=== PATIENT | female | born 1990 | race Caucasian/White ===

== ENCOUNTER 2021-09-24 18:06 | Emergency (ER) | payer OTHER, SELFPAY ==
--- NOTE | ~2021-09-24 | XR_ITS ---
XR finger 5th LT min 2V 09/24/2021 18:21 Indication: Left fifth finger pain after fall Procedure: 4 views left fifth finger Comparison: No prior studies for comparison. Findings: There is a nondisplaced extra-articular fracture of the left fifth distal phalanx. Mild sof t tissue swelling. No other fracture. No foreign bodies. Impression: 1: Nondisplaced extra-articular fracture left fifth distal phalanx. Reviewed, dictated and finalized at location A. Impression: 1: Nondisplaced extra-articular fracture left fifth distal phalanx.
--- NOTE | 2021-09-24 18:09 | ED.UPPEXIN ---
HPI - Extremity Injury (Upper) General Stated Complaint: left pinky injury Time Seen by Provider: 09/24/21 18:09 Source: patient Mode of arrival: ambulatory Limitations: no limitations History of Present Illness HPI narrative: Ms. Ta is a 31-year-old female patient presenting to the clinic today with complaints of left pinky finger pain after a fall. She reports that this happened on Saturday. She reports that she was not eating and worked out really hard and thinks she may have had a syncopal episode and fell. Related Data Home Medications Medication Instructions Recorded Confirmed multivitamin with minerals-folic 1 tablet PO DAILY 09/24/21 09/24/21 acid 200 mcg chewable tablet Allergies Allergy/AdvReac Type Severity Reaction Status Date / Time adhesive tape Allergy Mild Rash Verified 09/24/21 18:50 COBAN Allergy Mild Rash Uncoded 09/24/21 18:48 Review of Systems Review of Systems: CONSTITUTIONAL: Denies fever, chills, or sweats. EYES: Denies visual changes, redness, or discharge. ENT: Denies rhinorrhea, congestion, sore throat, or otalgia. CARDIOVASCULAR: Denies chest pain, palpitations, or edema. RESPIRATORY: Denies cough or dyspnea. GASTROINTESTINAL: Denies abdominal pain, nausea, vomiting, or diarrhea. GENITOURINARY: Denies dysuria or hematuria. SKIN: Denies rash or itching. MUSCULOSKELETAL: Denies back pain, joint pain, or myalgia. NEUROLOGIC: Denies headache, numbness, or weakness. PSYCHIATRIC: Denies anxiety or depression. PMFSH Comments At the time of my signature, I reviewed and agree with the nursing past medical, surgical, social, and family history. There is no relevant family history pertinent to the patient complaint. Exam Narrative: General: Well-developed, obese, in no apparent distress Head: Normocephalic, atraumatic. Cardio: Regular rate and rhythm, s1 and s2 normal, no murmur appreciated. Resp: Clear to auscultation bilaterally, no rhonchi, rales, wheezing or rubs. Musculoskeletal: No deformity, bruising and swelling noted over the left distal fifth finger, pain with flexion and extension of the DIP joint of the left fifth finger, tender to palpation the distal phalanx and DIP joint of the left fifth finger, limited range of motion of the DIP joint due to pain and swelling, muscle strength strong and equal, peripheral pulse strong, no cyanosis, normal gait and station Course Course Emergency Course: Portions of this record may have been created with voice recognition software. Level of Care: Express Care Visit Vital Signs Vital signs: Vital signs reviewed MDM - Extremity Injury (Upper) MDM Narrative Medical decision making narrative: At the time of assessment patient is resting comfortably on the exam table. X-ray was completed and it was found that patient has a nondisplaced distal phalanx fracture of the left fifth finger. Splint was applied and supportive measures were discussed with the patient. Patient voiced understanding of discharge instructions and agrees to the treatment plan. Differential Diagnosis Differential diagnosis: Likely finger sprain, dislocation of finger and other (Finger fracture) Imaging Data Attestation: I personally reviewed and interpreted this imaging study as follows: My impression: Left fifth finger distal phalanx fracture Radiologist's impression: [facility] [place] [id number] XRay Report Signed Patient: Vaishnavi Henry : 1990 MR#: [id number] Age/Sex: 31 / F Acct:[id number] Loc: [facility]? ? ADM Date: 09/24/21Attending Dr: Ordering Physician: Alexx Neal APRN Date of Service: 09/24/21 Procedure(s): XR finger 5th LT min 2V Accession Number(s): [id number] cc: Alexx Neal APRN~ XR finger 5th LT min 2V 09/24/2021 18:21 Indication: Left fifth finger pain after fall Procedure: 4 views left fifth finger Comparison: No alvarado
[2021-09-24 18:12] VITALS: BP 142/93; PULSE 83; RESP 18; TEMP 37.6; O2SAT 98
== END 2021-09-24 18:35 | disposition home or self-care (01) ==
PROVIDERS: Emergency Provider Nurse Practitioner Family
DX: S62.667A Nondisplaced fracture of distal phalanx of left little finger, initial encounter for closed fracture (principal); W19.XXXA Unspecified fall, initial encounter
CPT/HCPCS: 29130; 73140; 99204; G0463

== ENCOUNTER → 2022-02-21 09:23 | Outpatient (CLI) | payer OTHER, SELFPAY ==
--- NOTE | ~2022-02-21 | US_ITS ---
EXAMINATION: US OB /maternal detail DATE: 02/21/2022 10:02 INDICATION: anatomic survey. TECHNIQUE: Real-time ultrasound of the pelvis was performed. COMPARISON: None. FINDINGS: There is a single living fetus in transverse lie. The placenta is posterior, 6.0 cm from the cervix. heart rate is 143 beats per minute (bpm). The amniotic fluid volume is subjectively normal. Th e cervical length is normal on transabdominal images. The following biometric data were obtained: Biparietal diameter (BPD): 4.4 cm; head circumference (HC): 15.9 cm; abdominal circumference (AC): 13 .0 cm; femur length (FL): 3.1 cm. These measurements are concordant. Estimated weight is 270 g +/- 40 g, which correlates with the 18th percentile when 07/14/22 is u sed as estimated date of delivery. As single measurements, these parameters are each equal to the following estimated gestational ages: BPD: 19 weeks 2 days. HC: 18 weeks 5 days. AC: 18 weeks 4 days. FL: 19 weeks 4 days. estimated gestational age based solely on measurements from this exam is 19 weeks 0 days +/- 1 weeks 2 days. The cerebral ventricles, cerebellum, cisterna magna, nuchal fold, and visualized portions of the spin e are normal. The four-chamber heart view is normal. The ventricular outflow tracts are not well visu alized. The diaphragm, stomach, kidneys, and bladder are normal. There are two umbilical arteries to yield a 3-vessel cord. The cord insertion is normal. IMPRESSION: 1. Single living fetus in transverse lie. 2. Estimated weight is 270 g +/- 40 g, which correlates with the 18th percentile when 07/14/22 is used as estimated date of delivery. 3. Normal anatomic survey. Heart ventricular outflow tracts not well visualized. Reviewed, dictated and finalized at location A. IMPRESSION: 1. Single living fetus in transverse lie. 2. Estimated weight is 270 g +/- 40 g, which correlates with the 18th pe rcentile when 07/14/22 is used as estimated date of delivery. 3. Normal anatomic survey. Heart ventricular outflow tracts not well visu alized.
== END ==
PROVIDERS: PCP Nurse Practitioner Family; Visit Provider Nurse Practitioner Family
DX: Z34.82 Encounter for supervision of other normal pregnancy, second trimester (principal); Z3A.19 19 weeks gestation of pregnancy
CPT/HCPCS: 76805

== ENCOUNTER → 2022-03-19 09:55 | Outpatient (CLI) | payer OTHER, SELFPAY ==
--- NOTE | ~2022-03-19 | US_ITS ---
EXAMINATION: US OB follow up DATE: 03/19/2022 10:32 INDICATION: Evaluate outflow tracts. TECHNIQUE: Real-time transabdominal obstetric ultrasound. FINDINGS: Comparison to ultrasound dated 02/21/2022 There is a single living fetus in transverse presentation. The placenta is posterior without placent a previa. Placental margin measures approximately 7 cm to the cervix. Cervical length is approximatel y 3.6 cm. Amniotic fluid volume is subjectively normal. cardiac activity and movement is noted with a heart rate of 153 beats per minute. E valuation of the ventricular outflow tracts are normal. The following biometric data were obtained: BPD: 50mm corresponds to gestational age 21 weeks 0 days. Head circumference: 190mm corresponds to gestational age 21 weeks 2 days. Abdominal circumference: 178mm corresponds to gestational age 22 weeks 5 days. Femur length: 41mm corresponds to gestational age 23 weeks 2 days. Estimated weight: 526grams +/- 79grams, 17.8% using Hadlock method.] IMPRESSION: 1. Single living intrauterine in transverse presentation with an estimated gestational age of 23 weeks 2 days by inititial date. Appropriate interval growth. 2. Normal ventricular outflow tracts.. Reviewed, dictated and finalized at location B. [employer] TECHNICIAN IMPRESSION: 1. Single living intrauterine in transverse presentation with an est imated gestational age of 23 weeks 2 days by inititial date. Appropriate inter garima growth. 2. Normal ventricular outflow tracts..
== END ==
PROVIDERS: PCP Nurse Practitioner Family; Visit Provider Nurse Practitioner Family
DX: O28.3 Abnormal ultrasonic finding on antenatal screening of mother (principal)
CPT/HCPCS: 76816

== ENCOUNTER 2023-03-05 15:01 | Emergency (ER) | payer OTHER, SELFPAY ==
[2023-03-05 15:18] VITALS: BP 132/90; PULSE 88; RESP 16; TEMP 36.6; O2SAT 100
[2023-03-05 15:23] VITALS: BP 132/90; PULSE 88; RESP 16; TEMP 36.6; O2SAT 100
--- NOTE | 2023-03-05 15:24 | ED.SKABFB ---
HPI - Skin/Abscess/Foreign Bdy General Chief complaint: Skin/Abscess/Foreign Body Stated complaint: Chest pain;Hives Time Seen by Provider: 03/05/23 15:20 Source: patient Mode of arrival: ambulatory Limitations: no limitations History of Present Illness HPI narrative: Marimar is a 32-year-old female patient presenting to clinic today with complaints cough, hives, and some chest discomfort. She reports she does have a history of asthma and feels as though her chest is tight. Denies any fever or chills. Denies any known exposure to anyone with COVID, flu, or strep. Denies any new environmental changes. Related Data Home Medications Medication Instructions Recorded Confirmed multivitamin with minerals-folic 1 tablet PO DAILY 09/24/21 03/05/23 acid 200 mcg chewable tablet albuterol sulfate 2.5 mg/3 mL 2.5 mg inhalation DAILY 03/05/23 03/05/23 (0.083 %) solution for nebulization budesonide-formoterol HFA 160 1 inh inhalation DAILY 03/05/23 03/05/23 mcg-4.5 mcg/actuation aerosol inhaler (Symbicort) montelukast 10 mg tablet 10 mg PO DAILY 03/05/23 03/05/23 Allergies Allergy/AdvReac Type Severity Reaction Status Date / Time adhesive tape Allergy Mild Rash Verified 03/05/23 15:05 COBAN Allergy Mild Rash Uncoded 03/05/23 15:05 Review of Systems Review of Systems: Pertinent positives per HPI. Patient denies any fever, chills, rash, headache, visual changes, dizziness, cough, runny nose, sore throat, shortness of breath, chest pain, palpitations, nausea, vomiting, diarrhea, constipation, abdominal pain, or any urinary issues. PMFSH Comments At the time of my signature, I reviewed and agree with the nursing past medical, surgical, social, and family history. There is no relevant family history pertinent to the patient complaint. Exam Narrative: General: Well-developed, well nourished, in no apparent distress Head: Normocephalic, atraumatic Eyes: Pupils equally round and reactive to light bilaterally, EOM intact, sclera and conjunctive clear, no discharge, lids normal Ears: TMs intact and clear, ear canals clear, no drainage, grossly hearing normal. Nose: Nares patent, clear nasal discharge, no inflammation, no sinus tenderness. Mouth: Oropharynx without lesions or masses, good dentition, MMM. Neck: Supple, trachea midline, no enlargement of anterior or posterior cervical nodes, no thyroid masses or goiter palpable. Cardio: Regular rate and rhythm, s1 and s2 normal, no murmur appreciated. Resp: Inspiratory wheeze otherwise clear, no rhonchi, rales, or rubs Integumentary: Ocean, warm, and dry, red dry skin where patient has been scratching but no obvious sign of hives Course Course Emergency Course: Portions of this record may have been created with voice recognition software. Level of Care: Express Care Visit Vital Signs Vital signs: Vital Signs Temperature 36.6 C 03/05/23 15:18 Pulse Rate 88 03/05/23 15:18 Respiratory Rate 16 03/05/23 15:18 Blood Pressure 132/90 03/05/23 15:18 Pulse Oximetry 100 03/05/23 15:18 Temperature 36.6 C 03/05/23 15:23 Pulse Rate 88 03/05/23 15:23 Respiratory Rate 16 03/05/23 15:23 Blood Pressure 132/90 03/05/23 15:23 Pulse Oximetry 100 03/05/23 15:23 Vital signs reviewed MDM - Skin/Abscess/Foreign Bdy MDM Narrative Medical decision making narrative: At the time of visit patient is resting comfortably on the exam table. Patient has inspiratory wheezing with some chest tightness-history of asthma. I suspect the patient is having asthma exacerbation with a pruritic skin. Will send in prescription for prednisone and Pepcid. Supportive measures were discussed with the patient she voiced understanding of the discharge instructions and agrees to treatment plan. Differential Diagnosis Differential diagnosis: Likely abscess of skin or subcutaneous tissue, viral exanthem, dermatophytosis, urticaria, cellulitis, eczema, insect
== END 2023-03-05 15:31 | disposition home or self-care (01) ==
PROVIDERS: Emergency Provider Nurse Practitioner Family; PCP Nurse Practitioner Adult Health
DX: R21 Rash and other nonspecific skin eruption (principal); J45.901 Unspecified asthma with (acute) exacerbation
CPT/HCPCS: 99213; G0463

== ENCOUNTER 2023-03-20 16:07 | Emergency (ER) | payer OTHER, SELFPAY ==
--- NOTE | 2023-03-20 16:15 | ED.URI ---
HPI - URI/Sore Throat General Chief Complaint: Upper Respiratory Infection Stated Complaint: Hives;Sore Throat Time Seen by Provider: 03/20/23 16:39 Source: patient and RN notes reviewed Mode of arrival: ambulatory Limitations: no limitations History of Present Illness HPI Narrative: 33-year-old female presents with concern for sore throat and ongoing hives. She reports she was seen here 2 weeks ago for hives and was prescribed steroids, Pepcid, told to take Benadryl [id number] and Zyrtec [id number]. She reports Benadryl makes her very tired, the steroids helped the itching but the appearance of hives with still there. She denies any nausea, vomiting, diarrhea, swollen lips, swollen tongue, trouble breathing. She denies any known trigger for her hives. She reports when she was she had hives. Reports the symptoms get worse when she is stressed out. MD elicited complaint: sore throat Related Data Home Medications Medication Instructions Recorded Confirmed multivitamin with minerals-folic 1 tablet PO DAILY 09/24/21 03/20/23 acid 200 mcg chewable tablet albuterol sulfate 2.5 mg/3 mL 2.5 mg inhalation DAILY 03/05/23 03/20/23 (0.083 %) solution for nebulization budesonide-formoterol HFA 160 1 inh inhalation DAILY 03/05/23 03/20/23 mcg-4.5 mcg/actuation aerosol inhaler (Symbicort) Allergies Allergy/AdvReac Type Severity Reaction Status Date / Time adhesive tape Allergy Mild Rash Verified 03/20/23 16:27 COBAN Allergy Mild Rash Uncoded 03/20/23 16:27 Review of Systems Review of Systems: CONSTITUTIONAL: Denies malaise, chills, sweats, or fever. EYES: Denies visual changes, redness, or discharge. ENT: Denies rhinorrhea, congestion, sinus pain, otalgia. Reports sore throat. CARDIOVASCULAR: Denies chest pain, palpitations, or edema. RESPIRATORY: Denies cough. Denies dyspnea. GASTROINTESTINAL: Denies abdominal pain, nausea, vomiting, diarrhea SKIN: Reports ongoing hives for 2 weeks. MUSCULOSKELETAL: Denies myalgia. NEUROLOGIC: Denies headache. All systems reviewed & are unremarkable except as noted in HPI and below PMFSH Comments At time of signature, agree with nursing past medical, surgical, social and family history. There is no relevant family history pertinent to the presenting complaint Exam Narrative: GENERAL: Well-appearing, well-nourished, and in no acute distress. HEAD: Normocephalic EYES: PERRLA, conjunctivae clear ENT: Nares clear. Mucous membranes moist. TM pearly barakat with sharp light reflex bilaterally; no tragal tenderness. Oropharynx not erythematous without lesions. Tonsils not enlarged and without exudate, no drooling, no hoarseness, no trismus, uvula midline. NECK: Supple. No lymphadenopathy CHEST: Clear to auscultation, breath sounds equal. No wheezing, rhonchi, rales, or stridor. No respiratory distress, speaks in full sentences. HEART: Regular rate and rhythm. No murmur heard. SKIN: Warm, dry. Generalized urticarial rash noted NEURO: Alert and oriented x3. PSYCH: Normal mood and affect Course Course Emergency Course: Patient is aware of diagnosis, understands and agrees to treatment plan. Anticipatory guidance given. Patient agrees to follow-up as directed and is aware of reasons to seek care at the emergency department. Portions of this record may have been created with voice recognition software Level of Care: Express Care Visit Vital Signs Vital signs: Reviewed. MDM - URI/Sore Throat MDM Narrative Medical decision making narrative: Differential diagnosis considered: Holloway virus, strep pharyngitis, allergic rhinitis, upper respiratory tract infection, sinusitis, rhinosinusitis, nasopharyngitis. viral pharyngitis, otitis media, otitis externa, pneumonia, bronchitis, viral cough syndrome, viral syndrome, and influenza. Exam findings show no acute concerns or changes; patient is non-toxic appearing and is in no distress. Patient is appropriate for o
[2023-03-20 16:19] VITALS: BP 136/99; PULSE 78; RESP 18; TEMP 37.1; O2SAT 100
== END 2023-03-20 17:12 | disposition home or self-care (01) ==
PROVIDERS: Emergency Provider Nurse Practitioner
DX: L50.9 Urticaria, unspecified (principal); J45.909 Unspecified asthma, uncomplicated
CPT/HCPCS: 81003; 81025; 87081; 87880; 96372; 99213; G0463; J1100

== ENCOUNTER 2025-03-02 17:05 | Outpatient (CLI) | payer OTHER, SELFPAY ==
--- OUTSIDE RECORDS SUMMARY | 2025-03-02 17:10 | XMS_ITS | Clinical Summary ---
Author Organization [facility] Address [address] [place] [address] Care Team Providers Care Fretted Instrument Maker Hand Name Role Phone Wilver Harrison MD Unavailable + [phone] Sylvester Parham DPM Unavailable + [phone] No, Physician Primary Care Provider [phone] Allergies Active Allergy Reactions Criticality Noted Date Comments Cat Hair Standardized Allergenic Extract Hives Medium 10/04/2019 Dog Hair Standardized Allergenic Extract Hives Medium 06/24/2023 Latex Rash Medium 07/29/2018 Medications acetaminophen 500 mg capsuleIndications :Pain Take 2 capsules (1,000 mg total) by mouth every 6 (six) hours as needed for pain (TAKE FIRST) 60 tablet 08/03/19 19 Active Additional Information Patient not taking.Reported on 12/15/2024 acyclovir (ZOVIRAX) 400 mg tablet 04/08/20 23 Active cetirizine (ZyrTEC) 10 mg tablet Take 1 tablet (10 mg total) by mouth daily 08/25/19 22 Active albuterol 2.5 mg /3 mL (0.083 %) nebulizer solution 02/05/20 23 Active hydrOXYzine (ATARAX) 25 mg tablet Take 1 tablet (25 mg total) by mouth 3 (three) times a day as needed for anxiety 21 tablet 05/08/19 24 Active Additional Information Patient not taking.Reported on 06/24/2023 ondansetron ODT (ZOFRAN-ODT) 4 mg disintegrating tablet Take 1 tablet (4 mg total) by mouth every 8 (eight) hours as needed for nausea or vomiting 20 tablet 05/29/19 24 Active Additional Information Patient not taking.Reported on 06/24/2023 montelukast (SINGULAIR) 10 mg tabletIndications: Moderate persistent asthma with acute exacerbation Take 1 tablet (10 mg total) by mouth nightly 30 tablet 11 07/05/19 24 Active Additional Information Patient not taking.Reported on 11/19/2023 escitalopram (LEXAPRO) 5 mg tablet Take 1 tablet (5 mg total) by mouth daily 30 tablet 1 11/19/19 24 Active promethazine-DM (PROMETHAZINE-DM) 1.25-3 mg/mL syrupIndications:C OVID-19 virus infection Take 5 mL by mouth 4 (four) times a day as needed for cough (And runny nose) Collaborating physician Pepe Barillas MD 118 mL 1 12/20/19 24 Active naproxen (NAPROSYN) 500 mg tabletIndications: COVID-19 virus infection TAKE 1 TABLET BY MOUTH TWICE A DAY NEEDED FOR PAIN 60 tablet 1 12/23/19 24 Active promethazine (PHENERGAN) 1.25 mg/mL syrupIndications:N ausea Take 20 mL (25 mg total) by mouth 4 (four) times a day as needed for nausea Collaborating physician Pepe Barillas MD. note the pharmacist: May substitute with promethazine 25 mg tablets 1 p.o. q.i.d. p.r.n. nausea. Disp #20 240 mL 05/20/19 25 Active montelukast (SINGULAIR) 10 mg tablet TAKE 1 TABLET BY MOUTH EVERY DAY AT NIGHT 90 tablet 1 05/25/19 25 Active azithromycin (Zithromax Z-Cayden) 250 mg tabletIndications: Acute bronchitis, unspecified organism,Acute bronchospasm,Tonsi llitis Take 1 tablet (250 mg total) by mouth daily Take first 2 tablets together, then 1 every day until finished. Collaborating physician Pepe Barillas MD 6 tablet 06/14/19 25 Active Additional Information Patient not taking.Reported on 12/15/2024 promethazine-DM (PROMETHAZINE-DM) 1.25-3 mg/mL syrupIndications:A cute bronchitis, unspecified organism Take 5 mL by mouth 4 (four) times a day as needed for cough Collaborating physician Pepe Barillas MD 473 mL 06/22/19 Active HYDROcodone-acetam inophen (NORCO) 5-325 mg per tabletIndications: Pain Take 1 tablet by mouth every 6 (six) hours as needed for pain for up to 6 doses 6 tablet 07/19/19 Active Additional Information Patient not taking.Reported on 12/15/2024 valACYclovir (VALTREX) 500 mg tablet Take 1 tablet (500 mg total) by mouth daily 11/07/19 Active Blisovi 24 Fe 1 mg-20 mcg (24)/75 mg (4) per tablet Take 1 tablet by mouth daily 11/25/19 Active famotidine (PEPCID) 40 mg tabletIndications: Gastroesophageal reflux disease, unspecified whether esophagitis present Take 1 tablet (40 mg total) by mouth daily 30 tablet 12/16/19 026 Active albuterol HFA (PROVENTIL HFA,VENTOLIN HFA,PROAIR HFA) 90 mcg/actuation inhalerIndications :Moderate persistent asthma without complication Inhale 2 puffs every 4 (four) hours as needed for wheezing or shortness of breath Collaborating physician Pepe Barillas MD 1 each 12/16/19 25 Active albuterol-budesoni de 90-80 mcg/actuation HFA aerosol inhaler Inhale 2 puffs every 6 (six) hours as needed (cough, shortness of breath or wheezing) 10.7 g 11 12/16/19 Active Trelegy Ellipta 200-62.5-25 mcg inhalerIndications :Moderate persistent asthma without complication INHALE 1 PUFF DAILY RINSE AND SPIT AFTER USE 60 each 01/28/20 25 026 Active promethazine (PHENERGAN) 1.25 mg/mL syrup Take 20 mL (25 mg total) by mouth every 6 (six) hours as needed for nausea or vomiting 473 mL 02/12/20 25 Active Active Problems Problem Noted Date Diagnosed Date Acute bronchitis 06/14/2024 Acute bronchospasm 06/14/2024 Uvulitis 05/20/2024 Acute pharyngitis 05/20/2024 Nausea 05/20/2024 COVID-19 virus infection 12/20/2023 Moderate persistent asthma with acute exacerbati on 07/05/2023 Assessment & Plan (08/09/2023 1:29 PM CDT): Continue Trelegy Ellipta 200 daily, she has had good clinical benefit however symptoms persist Prescription sent to pharmacy to check for coverage Continue albuterol as needed only, discussed indications for use Avoid triggers Restart montelukast daily in the evening Mucinex OTC IgE level significantly elevated and multiple positives on RAST allergy panel Low threshold to initiate biologics Assessment & Plan (07/05/2023 11:03 AM PRINTED CIRCUIT BOARDS CONTACT PRINTER): We have had an extensive discussion about asthma and the need for maintenance inhalers Start Trelegy Ellipta 200 daily, samples to patient She was instructed to use this at the same time each day and rinse and spit after use Continue albuterol as needed only, discussed indications for use I provided her an AeroChamber for use with albuterol Avoid triggers Restart montelukast daily Mucinex OTC History of pneumothorax 07/05/2023 Assessment & Plan (07/05/2023 10:57 AM PRINTED CIRCUIT BOARDS CONTACT PRINTER): No residual on imaging Gastroesophageal reflux disease 07/05/2023 Assessment & Plan (10/23/2023 3:59 PM CDT): Continue famotidine 40 mg daily She has had good control with daily use Avoid trigger foods Elevate head of bed when sleeping No eating 2-3 hours before bed Assessment & Plan (08/09/2023 1:31 PM CDT): I have encouraged consistent use of famotidine 40 mg p.o. 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 Assessment & Plan (10/23/2023 3:58 PM CDT): Continue montelukast and OTC allergy pill daily IgE 1151 and multiple positives on RAST allergy panel Assessment & Plan (08/09/2023 1:30 PM CDT): Continue montelukast, OTC allergy pill Avoid triggers Assessment & Plan (07/05/2023 10:57 AM PRINTED CIRCUIT BOARDS CONTACT PRINTER): IgE level significantly elevated Start triple therapy maintenance inhaler as above She may qualify for biologics, we will reassess her status after she has been on maintenance inhaled therapy daily Environmental allergies 07/05/2023 Assessment & Plan (07/05/2023 10:55 AM PRINTED CIRCUIT BOARDS CONTACT PRINTER): RAST panel with multiple positives She has re-homed her dog Restart allergy pill daily Montelukast daily Will reassess in 1 month, she may need evaluation for SCIT Asthma 05/08/2023 Assessment & Plan (10/23/2023 4:01 PM CDT): She has had best clinical benefit from Trelegy Ellipta 200, I recommend she restart this as maintenance therapy She has tried and failed Symbicort and Spiriva with worsening respiratory symptoms Albuterol as needed only, discussed indications for use Avoid triggers I would have a low threshold to initiate biologic therapy in the future if she were to become uncontrolled with optimal maintenance dosing Assessment & Plan (05/10/2023 11:17 AM PRINTED CIRCUIT BOARDS CONTACT PRINTER): Not at goal, has been out of her Symbicort and Singulair for a few days though. Will refill for her, she is also wanting to see a Vp Customer Service, will send referral. Anxiety 05/08/2023 Assessment & Plan (11/19/2023 11:36 AM CDT): Not at goal, has been on Sertraline in the past with adverse side effects. Patient never started Paxil. Will trial Lexapro 5 mg daily, education provided. Assessment & Plan (05/10/2023 11:16 AM PRINTED CIRCUIT BOARDS CONTACT PRINTER): Not at goal, discussed different medications and she will start the Paxil originally prescribed by her BENCH LAY OUT TECHNICIAN. Hydroxyzine prn. Education provided and follow up in 4 weeks. with 39 completed weeks gestation 06/27 Tonsillitis 05/02/2021 Suspected COVID-19 virus infection 05/02/2021 Bilateral carpal tunnel syndrome 06/22/2020 Multiple rib fractures 07/30/2018 Pneumothorax on left 07/30/2018 Assessment & Plan (05/10/2023 11:15 AM PRINTED CIRCUIT BOARDS CONTACT PRINTER): Hx present. Closed coracoid process fracture 07/30/2018 Acute pain due to trauma 07/30/2018 Morbid obesity 03/05/2013 Encounters Date Type Department Care Team Description 02/11/2025 4:13 PM CDT - 02/11/2025 4:34 PM CDT Emergency [facility] Emergency Department [address] [place] [address] Nausea and vomiting, unspecified vomiting type (Primary Dx) Discharge Disposition: Discharge to home or self care 02/04/2025 Telephone [facility] Pulmonary at [address] [phone] Maia Walker LPN nebulizing supplies 01/29/2025 Telephone [facility] at [address] [phone] Misael Aragon MD 12/28/2024 10:58 AM CDT - 12/28/2024 11:32 AM CDT Emergency [facility] Emergency Department [address] [place] [address] Discharge Disposition: Left without being seen 12/16/2024 Telephone [facility] at [address] [phone] Maia Walker LPN Allergy referral concern 12/15/2024 1:30 PM CDT Office Visit [facility] at [address] [phone] Ryan Lau MD History of pneumothorax (Primary Dx); Moderate persistent asthma without complication; Gastroesophageal reflux disease, unspecified whether esophagitis present; Chronic urticaria from Last 3 Months Immunizations Immunization Administration Dates Next Due DTP 1992,1992,1992 DTaP 12/07/1997,07/02/1995 DTaP, Unspecified 12/07/1997,07/02/1995 HPV, Unspecified 01/14/2009,12/06/1996, 7 HPV9 01/14/2009,12/06/1996,08/19/1996 Hep B, Unspecified 1992,1992 HiB 06/21/1993, 3,1992,05/16 Influenza, Quadrivalent, Spl it, Intramuscular 04/18/2017,06/14/2016,07/13/2015,02/02 Influenza, Trivalent, Preser vative Free, Intramuscular 04/06/2013,02/11/2012 Influenza, Unspecified 05/08/2023(Deferr ed: Patient Refused),04/29/2022(Deferred: Patient Refused) MMR 12/07/1997,06/21/1993 OPV 12/07/1997, 6,1992,05/16 Tdap 07/29/2018,02/02/2014 Surgical History Surgery Date Site/Laterality Comments SECTION Medical History Medical History Date Comments Hypertension Hypertension Asthma Asthma Pneumothorax 2018 Moderate persistent asthma with acute exacerbati on 07/05/2023 History of pneumothorax 07/05/2023 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 Environmental allergies 07/05/2023 Family History Medical History Relation Name Comments Arthritis Mother Asthma Mother COPD Mother Heart failure Mother Relation Name Status Comments Mother Social History Tobacco Use Types Packs/Day Years Used Date Smoking Tobacco: Former Cigarettes 0.5 8 2 007 - 2014 Passive Smoke Exposure: Past Tobacco Cessation:Counseling Given: Not Answered Comments:Quit off and on, socially smoked in the past Alcohol Use Standard Drinks/Week Comments No 0 (1 standard drink = 0.6 oz pur e alcohol) Social Connection and Isolation Panel Answer Date Recorded In a typical week, how many times do you talk on the phone with family, friends, or neighbors? More than three times a week 07/09/2022 How often do you get togethe r with friends or relatives? More than three times a week 07/09/2022 How often do you attend [facility] or baptism services? Never 07/09/2022 Do you belong to any clubs o r organizations such as cheondoism groups, unions, fraternal or athletic groups, or school groups? No 07/09/2022 How often do you attend meet ings of the clubs or organizations you belong to? Never 07/09/2022 Are you , , di vorced, , never , or living with a partner? Patient declined 07/09/2022 Overall Financial Resource Strain (CARDIA) Answe r Date Recorded How hard is it for you to pa y for the very basics like food, housing, medical care, and heating? Not hard at all 07/09/2022 PHQ-2 Answer Date Recorded PHQ-2 Total Score (If total score is 3 or more points, staff should administer the PHQ-9) 2 11/19/2023 [facility] Occupat ional [facility] - Occupational Stress Questionnaire Answer Date Recorded Do you feel stress - tense, restless, nervous, or anxious, or unable to sleep at night because your mind is troubled all the time - these days? Not at all 07/09/2022 Exercise Vital Sign Answer Date Recorde d On average, how many days pe r week do you engage in moderate to strenuous exercise (like a brisk walk)? 3 days 07/09/2022 On average, how many minutes do you engage in exercise at this level? 20 min 07/09/2022 Hunger Vital Sign Answer Date Recorded Within the past 12 months, y ou worried that your food would run out before you got the money to buy more. Never true 07/10/19 Within the past 12 months, t he food you bought just didn't last and you didn't have money to get more. Never true 07/09/2022 PRAPARE - Transportation Answer Date Re corded In the past 12 months, has l ack of transportation kept you from medical appointments or from getting medications? No 06/27 In the past 12 months, has l ack of transportation kept you from meetings, work, or from getting things needed for daily living? No 07/09/2022 Housing Stability Vital Sign Answer Jose Guadalupe e Recorded In the last 12 months, was t here a time when you were not able to pay the mortgage or rent on time? No 07/09/2022 In the last 12 months, how many places have you lived? 2 07/09/2022 In the last 12 months, was t here a time when you did not have a steady place to sleep or slept in a custodial (including now)? No 07/09/2022 AUDIT-C Answer Date Recorded Frequency of Alcohol Consumption Not on file 12/15/2024 Q2: How many drinks containi ng alcohol do you have on a typical day when you are drinking? Patient does not drink Frequency of Binge Drinking Not on file 11/27 Personal Safety Answer Date Recorded Have you ever been in or are you currently in a harmful physical or emotional relationship or is someone making you feel afraid or unsafe? Denies 02/11/2025 Comments Unknown Sex and Gender Information Value Date Recorded Sex Assigned at Not on file Legal Sex Female 1:04 PM PRINTED CIRCUIT BOARDS CONTACT PRINTER Gender Identity Not on file Sexual Orientation Not on file Obstetrics History Para Term AB IAB SAB Ectopic Multiple Livin g Live Births 2 2 2 0 2 2 Date Outcome GA Total Labor Labor/2nd/3rd Weight Sex Type Anes PTL Kandy A1 A5 Name Clin 2010 Term 40w 0d 2.781 kg (6 lb 2.1 oz) M C-Sec tion Genera l N Livin g Complications:Failure to Pro julianna in First Stage Delivery Location:[facility] Comments:Failed epidur al 2022 Term 39w 0d 0h 03m 0h 03m 2.924 kg (6 lb 7.1 oz) F C-Sec tion Spinal N Livin g 9 9 FILE, GIRLL Antonio Griggs MD Delivery Location:[facility] ([facility] L AND D PROCEDURE) Last Filed Vital Signs Vital Sign Reading Time Taken Comments Blood Pressure 135/83 02/11/2025 3:52 PM CDT Pulse 89 02/11/2025 3:52 PM CDT Temperature 36.8 C (98.3 F) 02/11/2025 3:52 PM CDT Respiratory Rate 16 02/11/2025 3:52 PM CDT Oxygen Saturation 96% 02/11/2025 3:52 PM CDT Inhaled Oxygen Concentration - - Weight 99.8 kg (220 lb) 02/11/2025 3:52 PM CDT Height 166.4 cm (5' 5.5) 12/15/2024 1:36 PM CDT Body Mass Index 36.05 12/15/2024 1:36 PM CDT Plan of Treatment Health Maintenance Due Date Last Done Comments Cervical Cancer Screening 1992 Hepatitis C Screening 1992 Varicella Vaccines (1 of 2 - 13+ 2-dose series) 2005 HPV Vaccines (2 - 3-dose series) 02/11/2009 01/14/2009, 01/14/2009, 12/06/1996, Additional history exists Regular Well Visit/Exam 18-64 2010 Pneumococcal vaccine <65 (1 of 2 - PCV) 2011 Depression Screening 11/18/2024 11/19/2023, 10/22/2023, 05/08/2023, Additional history exists Influenza Vaccine (#1) 2024 7, 06/14/2016, 07/13/2015, Additional history exists DTaP/Tdap/Td Vaccine (8 - Td or Tdap) 07/29/2028 07/29/2018, 02/02/2014, 12/07/1997, Additional history exists Hepatitis B Screening Completed 1992, 992 Procedures Procedure Name Priority Date/Time Associated Diagnosis Comments INFLUENZA A/B, RSV, AND COVID-19 PCR STAT 02/11/2025 4:01 PM CDT from Last 3 Months Results * Influenza A/B, RSV, and COVID-19 PCR Nasopharyngeal (02/11/2025 4:01 PM CDT) COVID-19 RNA Negative Negative Influenza A RNA Negative Negative [facility] ([place]) Influenza B RNA Negative Negative [facility] ([place]) RSV RNA Negative Negative [facility] ([place]) Comment: Interpretive data: Testing performed by [facility]. This test is performed using the [employer] Xpert Xpress CoV-2/Flu/RSV plus assay. This is a multiplex, real- time reverse transcriptase PCR assay intended for the qualitative detection of nucleic acid from SARS-CoV-2, influenza A, influenza B, and respiratory syncytial virus. This assay has been cleared by the [place] Food and Drug administration. The performance characteristics have been verified by the [facility]. Results must be considered in the clinical context, and a negative result does not rule out infection. Interpretive Data last revised 2023 Nasopharyngeal 02/11/2025 4: 01 PM CDT 02/11/2025 4:15 PM CDT Narrative JONATHAN VENTURA ([place]) - 02/11/2025 4:59 PM CDT Is the Patient experiencing symptoms consistent with COVID?->Yes us Gosia To MD LAB MICROBIOLOGY - GENERAL ORDERABLES Final Result JONATHAN VENTURA ([place]) [address] [facility] [place] [address] from Last 3 Months Insurance [facility] Advance Directives For more information, please contact: [phone] * Full Code (Latest Code Status on File) Date Activated Date Inactivated Comments 07/09/2022 1:33 PM 07/11/2022 11:29 PM * Full Code Date Activated Date Inactivated Comments 07/09/2022 10:23 AM 07/09/2022 1:33 PM Full CPR in case of cardiopulmonary arrest * Full Code Date Activated Date Inactivated Comments 07/29/2018 9:42 PM 08/02/2018 6:10 PM Care Teams Fretted Instrument Maker Hand Relationship Specialty Start Date End Date No, Physician PCP - General 06/14/24 Wilver Harrison MD [address] [place] [address] DR ARMENDARIZ B [address] [address] Consulting Physician Obstetrics and Gynecology 05/08/23 Sylvester Parham DPM [address] [place] [address] Podiatry 10/22/23
--- OUTSIDE RECORDS SUMMARY | 2025-03-02 17:10 | XMS_ITS | Clinical Summary ---
Author Organization [facility] Address [address] [place] [address] Care Team Providers Care Apprentice Jockey Name Role Phone Delaney Nathan APRN-TOY STUFFER Primary Care Provider [phone] Source Comments [facility],non-owned Affiliates and Associated Physician Practices is amultiple site organization consisting of ambulatory clinics and hospital sitesin [place], [place], [place] and [place]. This disclosure is being madepursuant to the Care Everywhere program and may not contain all information available regarding this patient. Last updated 18.[facility] Allergies No known active allergies Medications * Be aware that medications may not be up to date on this document. Alwaysverify current medications with the patient. triamcinolone acetonide (KENALOG) 0.1 % cream triamcinolone acetonide 0.1 % topical cream Active SPRINTEC 28 0.25-35 MG-MCG tablet Take 1 tablet by mouth once daily 04/09/20 19 Active montelukast (SINGULAIR) 10 MG tablet Take 10 mg by mouth at bedtime 11/21/19 19 Active ketoconazole (NIZORAL) 2 % cream ketoconazole 2 % topical cream APPLY TO THE AFFECTED AREA(S) OF TOENAILS ONCE DAILY Active ibuprofen (MOTRIN) 600 MG tablet ibuprofen 600 mg tablet Active hydroCHLOROth iazide (HYDRODIURIL) 25 MG tablet hydrochlorothiazide 25 mg tablet Active cyclobenzapri ne (FLEXERIL) 10 MG tablet Take 10 mg by mouth 3 times daily as needed 03/16/20 19 Active albuterol HFA (PROVENTIL;VE NTOLIN;PROAIR ) 108 (90 Base) MCG/ACT inhaler albuterol sulfate HFA 90 mcg/actuation aerosol inhaler Active Active Problems Problem Noted Date Diagnosed Date Bilateral carpal tunnel syndrome 06/22/2020 Social History Tobacco Use Types Packs/Day Years Used Date Smoking Tobacco: Every Day Cigarettes Smokeless Tobacco: Never Comments Unknown Sex and Gender Information Value Date Recorded Sex Assigned at Not on file Legal Sex Female 11:24 AM FOREST PATHOLOGY PROFESSOR Gender Identity Not on file Sexual Orientation Not on file Last Filed Vital Signs Vital Sign Reading Time Taken Comments Blood Pressure - - Pulse - - Temperature - - Respiratory Rate - - Oxygen Saturation - - Inhaled Oxygen Concentration - - Weight 81.6 kg (180 lb) 05/07/2019 9:29 AM FOREST PATHOLOGY PROFESSOR Height 165.1 cm (5' 5) 05/07/2019 9:29 AM FOREST PATHOLOGY PROFESSOR Body Mass Index 29.95 05/07/2019 9:29 AM FOREST PATHOLOGY PROFESSOR Plan of Treatment Health Maintenance Due Date Last Done Comments HIV SCREENING 2007 HEPATITIS C SCREENING 03/10/2010 DTAP/TDAP/TD VACCINES (1 - Tdap) 2011 HEPATITIS B VACCINE (1 of 3 - 19+ 3-dose series) 2011 HPV VACCINE (1 - 3-dose SCDM series) 2019 DEPRESSION SCREENING 04/29/2024 COVID-19 VACCINE (1 - 2023-2 5 season) 2024 INFLUENZA VACCINE (#1) 2024 ZOSTER VACCINE (1 of 2) 2042 HIB VACCINE Aged Out No longer eligi ble based on patient's age to complete this topic MENINGOCOCCAL (Group B) VACC INE SHARED DECISION-MAKING Aged Out No longer eligibl e based on patient's age to complete this topic MENINGOCOCCAL GROUPS A/C/Y/W VACCINE Aged Out No longer eligible b ased on patient's age to complete this topic PNEUMOCOCCAL VACCINE Aged Out No long er eligible based on patient's age to complete this topic Insurance [place] [address] [facility] [place] [address] [facility] Care Teams Apprentice Jockey Relationship Specialty Start Date End Date Delaney Nathan APRN-MAHESH [address] [place] [address] PCP - General Nurse Practitioner Family 04/28/19
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
[2025-03-02 18:38] LABS: HIV 1/2 Ab P24 Ag Result Negative (Negative)
[2025-03-02 19:37] LABS: Syphilis IgG/IgM Antibody Non-Reactive (Nonreactive)
[2025-03-02 19:41] LABS: Hepatitis B Surface Antigen Negative (Negative)
[2025-03-02 19:47] LABS: HAV RESULT Negative (Negative); Hepatitis B Core IgM Result Negative (Negative)
[2025-03-03 09:09] LABS: HSV 1 IgG, Type Spec Reactive (Non Reactive); HSV 2 IgG, Type Spec Reactive (Non Reactive)
== END 2025-03-02 17:06 | disposition home or self-care (01) ==
LOC: ANHLAB 17:07
PROVIDERS: Visit Provider Obstetrics & Gynecology
DX: Z11.3 Encounter for screening for infections with a predominantly sexual mode of transmission (principal)
CPT/HCPCS: 36415; 80074; 86593; 86695; 86696; 86703; G0432

== ENCOUNTER 2025-03-16 14:57 | Emergency (ER) | payer OTHER, SELFPAY ==
[2025-03-16 15:14] VITALS: BP 149/102; PULSE 93; RESP 18; TEMP 36.7; O2SAT 98
--- OUTSIDE RECORDS SUMMARY | 2025-03-17 04:22 | XMS_ITS | Clinical Summary ---
Author Organization [facility] Address [address] [place] [address] Care Team Providers Care Security Checker Name Role Phone Delaney Nathan APRN-SANDER SETTER Primary Care Provider [phone] Source Comments [facility],non-owned Affiliates and Associated Physician Practices is amultiple site organization consisting of ambulatory clinics and hospital sitesin [place], [place], [place] and [place]. This disclosure is being madepursuant to the Care Everywhere program and may not contain all information available regarding this patient. Last updated 18.[facility] Allergies No known active allergies Medications * [...] on file Legal Sex Female 11:24 AM COUNTY RECORDS MANAGEMENT OFFICER Gender Identity Not on file Sexual Orientation Not on file Last Filed Vital Signs Vital Sign Reading Time Taken Comments Blood Pressure - - Pulse - - Temperature - - Respiratory Rate - - Oxygen Saturation - - Inhaled Oxygen Concentration - - Weight 81.6 kg (180 lb) 05/07/2019 9:29 AM COUNTY RECORDS MANAGEMENT OFFICER Height 165.1 cm (5' 5) 05/07/2019 9:29 AM COUNTY RECORDS MANAGEMENT OFFICER Body Mass Index 29.95 05/07/2019 9:29 AM COUNTY RECORDS MANAGEMENT OFFICER Plan of Treatment Health Maintenance Due Date Last Done Comments HIV SCREENING 2007 HEPATITIS C SCREENING 03/10/2010 DTAP/TDAP/TD VACCINES (1 - Tdap) 2011 HEPATITIS B VACCINE (1 of 3 - 19+ 3-dose series) 2011 PAP SMEAR 2013 HPV VACCINE (1 - 3-dose SCDM series) 2019 Cervical Cancer Screening 2022 PAP with HPV 2022 DEPRESSION SCREENING 04/29/2024 COVID-19 VACCINE (1 - 2024-2 6 season) 2024 INFLUENZA VACCINE (#1) 2024 ZOSTER [...] age to complete this [place] [address] [facility] [place] [address] [facility] Care Teams Security Checker Relationship Specialty Start Date End Date Venita, LACY Baltazar-MAHESH [address] [place] [address] PCP - General Nurse Practitioner Family 04/28/19
--- OUTSIDE RECORDS SUMMARY | 2025-03-17 04:22 | XMS_ITS | Clinical Summary ---
Author Organization [facility] Address [address] [place] [address] Care Team Providers Care Power Shovel Operator Helper Name Role Phone Wilver Harrison MD Unavailable + [phone] Sylvester Parham DPM Unavailable + [phone] No, Physician Primary Care Provider [phone] Allergies Active Allergy Reactions Criticality Noted Date [...] biologics Assessment & Plan (07/05/2023 11:03 AM MARKETING PROPOSAL COORDINATOR): We have had an extensive discussion about [...] 07/05/2023 Assessment & Plan (07/05/2023 10:57 AM MARKETING PROPOSAL COORDINATOR): No residual on imaging Gastroesophageal reflux disease [...] clothing Assessment & Plan (07/05/2023 10:56 AM MARKETING PROPOSAL COORDINATOR): Severe symptoms daily despite diet modification She [...] triggers Assessment & Plan (07/05/2023 10:57 AM MARKETING PROPOSAL COORDINATOR): IgE level significantly elevated Start triple therapy maintenance inhaler as above She may qualify for biologics, we will reassess her status after she has been on maintenance inhaled therapy daily Environmental allergies 07/05/2023 Assessment & Plan (07/05/2023 10:55 AM MARKETING PROPOSAL COORDINATOR): RAST panel with multiple positives She has [...] dosing Assessment & Plan (05/10/2023 11:17 AM MARKETING PROPOSAL COORDINATOR): Not at goal, has been out of her Symbicort and Singulair for a few days though. Will refill for her, she is also wanting to see a Hearing Examiner, will send referral. Anxiety 05/08/2023 Assessment & Plan (11/19/2023 11:36 AM CDT): Not at goal, has been on Sertraline in the past with adverse side effects. Patient never started Paxil. Will trial Lexapro 5 mg daily, education provided. Assessment & Plan (05/10/2023 11:16 AM MARKETING PROPOSAL COORDINATOR): Not at goal, discussed different medications and she will start the Paxil originally prescribed by her DISTRIBUTION DISPATCHER. Hydroxyzine prn. Education provided and follow up in 4 weeks. with 39 completed weeks gestation 06/27 Tonsillitis 05/02/2021 Suspected COVID-19 virus infection 05/02/2021 Bilateral carpal tunnel syndrome 06/22/2020 Multiple rib fractures 07/30/2018 Pneumothorax on left 07/30/2018 Assessment & Plan (05/10/2023 11:15 AM MARKETING PROPOSAL COORDINATOR): Hx present. Closed coracoid process fracture 07/30/2018 Acute pain due to trauma 07/30/2018 Morbid obesity 03/05/2013 Encounters Date Type Department Care Team Description 02/11/2025 4:13 PM CDT - 02/11/2025 4:34 PM CDT Emergency [facility] Emergency Department [address] [place] [address] Nausea and vomiting, unspecified vomiting type (Primary Dx) Discharge Disposition: Discharge to home or self care 02/04/[address] [facility] Pulmonary at [address] [phone] Maia Walker LPN nebulizing supplies 01/29/[address] [facility] Primary Care at [address] [phone] Misael Aragon MD 12/28/2024 10:58 AM CDT - 12/28/2024 11:32 AM CDT Emergency [facility] Emergency Department [address] [place] [address] Discharge Disposition: Left without being seen 12/16/[address] [facility] Pulmonary at [address] [phone] Maia Walker LPN Allergy referral concern 12/15/2024 1:30 PM CDT Office Visit [facility] Pulmonary at [address] [phone] Ryan Lau MD History of pneumothorax (Primary [...] week 07/09/2022 How often do you attend [facility] or mormonism services? Never 07/09/2022 Do you belong to any clubs o r organizations such as jewish groups, unions, fraternal or athletic groups, or [...] staff should administer the PHQ-9) 2 11/19/2023 [facility] - Occupational Stress Questionnaire Answer Date Recorded [...] place to sleep or slept in a skilled nursing (including now)? No 07/09/2022 AUDIT-C Answer Date [...] on file Legal Sex Female 1:04 PM MARKETING PROPOSAL COORDINATOR Gender Identity Not on file Sexual Orientation [...] A RNA Negative Negative [facility] ([place]) Influenza B RNA Negative Negative [facility] ([place]) RSV RNA Negative Negative [facility] ([place]) Comment: Interpretive data: Testing performed by [facility]. This test is performed using the [employer] Xpert Xpress CoV-2/Flu/RSV plus assay. This is a multiplex, real- time reverse transcriptase PCR assay intended for the qualitative detection of nucleic acid from SARS-CoV-2, influenza A, influenza B, and respiratory syncytial virus. This assay has been cleared by the [place] Food and Drug administration. The performance characteristics have been verified by the [facility]. Results must be [...] - GENERAL ORDERABLES Final Result [facility] ([place]) [address] [facility] Department [place] [address] from Last 3 Months Insurance [facility] Advance Directives For more information, please contact: [phone] * Full Code (Latest Code Status on File) Date Activated Date Inactivated Comments 07/09/2022 1:33 PM 07/11/2022 11:29 PM * Full Code Date Activated Date Inactivated Comments 07/09/2022 10:23 AM 07/09/2022 1:33 PM Full CPR in case of cardiopulmonary arrest * Full Code Date Activated Date Inactivated Comments 07/29/2018 9:42 PM 08/02/2018 6:10 PM Care Teams Power Shovel Operator Helper Relationship Specialty Start Date End Date No, Physician PCP - General 06/14/24 Wilver Harrison MD [address] [place] [address] [address] ARMENDARIZ [address] [address] Consulting Physician Obstetrics and Gynecology 05/08/23 Sylvester Parham DPM [id number] [place] [address] Podiatry 10/22/23
--- OUTSIDE RECORDS SUMMARY | 2025-03-17 04:23 | XMS_ITS | Clinical Summary ---
Author Organization [facility] Address [address] [place] [address] Phone Care Team Providers Care Pet Care Associate Name Role Phone Provider, None Primary Care [...] age to complete this topic Insurance MEDICAID [place] Care Teams Pet Care Associate Relationship Specialty Start Date End Date Provider, None [place] PCP - General 08/14/24
== END 2025-03-16 19:03 | disposition left against medical advice (07) ==
LOC: ANHED 18:11
DX: R51.9 Headache, unspecified (principal)
CPT/HCPCS: 99199